=== PATIENT | female | born 1955 | race Caucasian/White ===

== ENCOUNTER 2016-12-20 11:37 | Outpatient (CLI) | payer OTHER | END 2016-12-20 11:38 | disposition home or self-care (01) | DX: Z79.899 Other long term (current) drug therapy (principal) ==

== ENCOUNTER 2017-01-13 12:59 | Outpatient (CLI) | payer OTHER | END 2017-01-13 13:00 | disposition home or self-care (01) | DX: M51.26 Other intervertebral disc displacement, lumbar region (principal); M47.896 Other spondylosis, lumbar region; M51.36 Other intervertebral disc degeneration, lumbar region; M47.897 Other spondylosis, lumbosacral region; M51.37 Other intervertebral disc degeneration, lumbosacral region; M43.14 Spondylolisthesis, thoracic region; M51.34 Other intervertebral disc degeneration, thoracic region ==

== ENCOUNTER 2017-01-13 13:00 | Outpatient (CLI) | payer OTHER | END 2017-01-13 13:01 | disposition home or self-care (01) | DX: M85.88 Other specified disorders of bone density and structure, other site (principal) ==

== ENCOUNTER 2018-04-10 12:09 | Outpatient (CLI) | payer MEDICARE, OTHER ==
--- NOTE | 2018-04-10 12:38 | XRAY Report ---
Procedure Date: 04/10/2018 Accession Number: [id number] / [id number] Procedure: XRS - Chest 2 View X-Ray CPT Code: 52948 FULL RESULT: EXAM: Chest 2 View X-Ray DATE: 04/10/2018 12:29 PM CLINICAL HISTORY: CHEST PAIN, UNSPECIFIED COMPARISON: None. TECHNIQUE: 2 views. FINDINGS: Lungs/Pleura: No focal opacities evident. No pneumothorax or pleural effusion. Normal volumes. Mediastinum: Heart and mediastinal contours are unremarkable. Other: None. IMPRESSION: Normal 2-view chest radiography. [facility]
== END 2018-04-10 12:10 | disposition home or self-care (01) ==
LOC: DI.S 12:09
PROVIDERS: ATTEND Internal Medicine
DX: S29.9XXA Unspecified injury of thorax, initial encounter (principal); R07.9 Chest pain, unspecified
CPT/HCPCS: 71046

== ENCOUNTER 2018-04-13 10:40 | Outpatient (CLI) | payer MEDICARE, OTHER ==
[2018-04-13 11:28] LABS: CREATININE 0.7 mg/dL (0.4-1.0)
== END 2018-04-13 10:41 | disposition home or self-care (01) ==
LOC: DI 10:40
PROVIDERS: ATTEND Internal Medicine
DX: S20.219A Contusion of unspecified front wall of thorax, initial encounter (principal); R07.1 Chest pain on breathing; Z98.82 Breast implant status; Z53.9 Procedure and treatment not carried out, unspecified reason
CPT/HCPCS: 36415; 82565

== ENCOUNTER 2018-04-14 12:42 | Outpatient (CLI) | payer MEDICARE, OTHER ==
[2018-04-14] MEDS ORDERED: IOPAMIDOL-300 100 ML VIAL IVP ONE (12:43)
[2018-04-14] MEDS ORDERED: IOPAMIDOL-300 100 ML VIAL ONE (13:01)
--- NOTE | 2018-04-14 14:51 | CT Report ---
Procedure Date: 04/14/2018 Accession Number: [id number] / [id number] Procedure: CT - Chest W/ CPT Code: FULL RESULT: EXAM: Chest W/ DATE: 04/14/2018 1:15 PM CLINICAL HISTORY: CHEST TRAUMA, PLEUROTIC PAIN, CHEST CONTUSION COMPARISON: None. TECHNIQUE: Routine helical CT imaging was performed through the chest. IV contrast: 80 mL Isovue 300. Reconstructions: Coronal and sagittal. In accordance with CT protocol optimization, one or more of the following dose reduction techniques were utilized for this exam: automated exposure control, adjustment of mA and/or KV based on patient size, or use of iterative reconstructive technique. FINDINGS: Lungs/Pleura: No nodules, bronchial thickening, consolidation, or edema. Pulmonary vasculature is normal. No pericardial or pleural effusion. No pneumothorax. Mediastinum: Normal. No adenopathy or masses. The heart and great vessels are normal. Bones: Unremarkable. Visualized Abdomen: Unremarkable. Other: Breast implants are intact. IMPRESSION: No evidence of trauma to the thorax. Intact bilateral breast implants. RAD[facility]
[2018-04-16] MEDS ORDERED: IOPAMIDOL-300 100 ML VIAL IVP ONE (14:31)
== END 2018-04-14 12:43 | disposition home or self-care (01) ==
LOC: DI 12:42
PROVIDERS: ATTEND Internal Medicine
DX: S29.9XXA Unspecified injury of thorax, initial encounter (principal); S20.219A Contusion of unspecified front wall of thorax, initial encounter; R07.1 Chest pain on breathing; Z98.82 Breast implant status
CPT/HCPCS: 71260; Q9967

== ENCOUNTER 2018-11-30 12:46 | Outpatient (CLI) | payer MEDICARE, OTHER ==
--- NOTE | 2018-12-02 08:18 | Mammography Report ---
Reason: ROUTINE MAMMO Procedure Date: 11/30/2018 Accession Number: [id number] / [id number] Procedure: ANIRUD[facility] - Screening Mammo Impl w/Fransico CPT Code: FULL RESULT: EXAM: Screening Mammo Implant w/Fransico DATE: 11/30/2018 1:26 PM CLINICAL HISTORY: Routine screening. No reported personal or family history of breast cancer. History of silicone implants in 2006. TECHNIQUE: Bilateral CC and MLO views were obtained. COMPARISON: None; unable to be obtained. FINDINGS: The breasts demonstrate heterogeneously dense fibroglandular parenchyma bilaterally. Bilateral breasts: There are subpectoral silicone implants with smooth margins bilaterally. There are no suspicious masses, calcifications or areas of distortion. IMPRESSION: Benign findings RECOMMENDATION: Routine annual screening unless otherwise clinically indicated. BI-RADS CATEGORY 2: Benign findings STANDARD QUALIFYING STATEMENTS: 1. This examination was not reviewed with the aid of Computer-Aided Detection (CAD). 2. A negative or benign imaging report should not preclude biopsy if clinically suspicious findings are present. 3. Dense breasts may obscure an underlying neoplasm. 4. This examination was reviewed with the aid of 3D breast imaging (tomosynthesis).
== END 2018-11-30 12:47 | disposition home or self-care (01) ==
LOC: DI 12:46
DX: Z12.31 Encounter for screening mammogram for malignant neoplasm of breast (principal); Z98.82 Breast implant status
CPT/HCPCS: 77063; 77067

== ENCOUNTER 2020-06-27 12:03 | Outpatient (CLI) | payer MEDICARE, OTHER | END 2020-06-27 12:04 | disposition home or self-care (01) | LOC: COV 12:03 | PROVIDERS: ATTEND Family Medicine | DX: R05 Cough (principal); M79.10 Myalgia, unspecified site; R53.83 Other fatigue; R68.83 Chills (without fever); J02.9 Acute pharyngitis, unspecified; R09.81 Nasal congestion; R11.2 Nausea with vomiting, unspecified; Z20.828 Contact with and (suspected) exposure to other viral communicable diseases ==

== ENCOUNTER 2020-10-16 13:02 | Outpatient (CLI) | payer MEDICARE, OTHER ==
--- NOTE | 2020-10-17 08:28 | Mammography Report ---
BILATERAL DIGITAL SCREENING MAMMOGRAM 3D/2D WITH AUGMENTATION: 10/16/2020 CLINICAL: Routine screening. Comparison is made to exam dated: 11/30/2018 mammogram - [facility]. The tissue of both breasts is heterogeneously dense. This may lower the sensitivity of mammography. Bilateral breast implants are stable. No significant masses, calcifications, or other findings are seen in either breast. There has been no significant interval change. IMPRESSION: NEGATIVE There is no mammographic evidence of malignancy. A 1 year screening mammogram is recommended. This exam was interpreted at Station ID: [id number]. NOTE: For mammograms, a report in lay terms will be sent to the patient. Approximately 15% of breast malignancies will not be visualized mammographically. In the management of a palpable breast mass, a negative mammogram must not discourage biopsy of a clinically suspicious lesion. Electronically Signed By: Brent Shannon M.D. ar/penrad:10/16/2020 14:56:55 ACR BI-RADS Category 1: Negative 3341F PARENCHYMAL PATTERN: (D) - The breast(s) demonstrate(s) heterogeneously dense fibroglandular pedro ortiz. BI-RADS CATEGORY: (1) - 1 RECOMMENDATION: (ANNUAL) - Recommend routine annual screening mammography. [id number] 1 year screening LATERALITY: (B)
== END 2020-10-16 13:03 | disposition home or self-care (01) ==
LOC: DI 13:02
PROVIDERS: ATTEND Physician Assistant
DX: Z12.31 Encounter for screening mammogram for malignant neoplasm of breast (principal); Z98.82 Breast implant status

== ENCOUNTER 2021-05-24 09:47 | Outpatient (CLI) | payer MEDICARE, OTHER ==
[2021-05-24 10:27] VITALS: BP 105/61
--- NOTE | 2021-05-24 10:27 | SLEEP CARE CONSULTATION ---
Information from patient questionnaire entered by Carmina Medeiros. I have reviewed and concur with the information entered by Carmina Medeiros. This document represents the service I personally performed and the decisions made by me, Dee Trinh ARNP. History of Present Illness Service Date and Time: 05/24/2021 0947 Reason for Visit: New patient Chief Complaint: reports: Unrefreshed sleep (sometimes), Snoring, Fatigue (when she saw her PCP but this has improved) Date of Onset: several months Usual bedtime: 11 pm Time it takes to fall asleep: 5 minutes Snores at night: Yes Observed to quit breathing while asleep: No Sleeps alone due to snoring: No Number of times waking at night: once generally Reasons for waking at night: reports: Snoring (couple times when napping on her back), Bathroom, Other (back hurts) Toss, Turn, or Twitch while sleeping: No (I don't know) Recalls having dreams: Yes Usually gets out of bed at: 6 am Feels refreshed in the morning: Yes (sometimes, depends) Morning headache: No Sleepy or fatigued during the day: No (sometimes) Ever fallen asleep while driving: No Takes day naps: Yes (sometimes; daily if allergies bad, not for last couple weeks) Dreams during day naps: No Prior sleep studies: No Additional HPI information: I had the pleasure of seeing ROSEMARY MCGREGOR today regarding the possibility of her having a sleep disorder. Her current complaint is snoring. Her has told her she is snoring "like a freight train" for the last year. Her is on a CPAP for sleep apnea. She has bad allergies and sometimes will sleep/nap in the afternoons. She states she sometimes feels rested in the morning and other times feels really tired. Her has not noticed any pauses in breathing or gasping in her sleep. She has some bad allergies to which she attributes her feeling of tiredness. She states when she saw her PCP she complained of really bad fatigue that had been ongoing but she thinks this has improved since she saw them. Her father did snore loudly and had emphysema but no diagnosis for sleep apnea. 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 Patient is and lives in [place]. Have you smoked in the past 12 months: No Quit date: 2000 Alcohol use: No Caffeine use: Yes Caffeine amount and frequency: 2-3 cups a day Family History Family history of sleep disordered breathing: Yes Family Hx Sleep Apnea: Father: Snoring, Sleep apnea - Untreated Allergies and Home Medications Drug allergies reviewed: Yes (NKDA) Home medication list reviewed: Yes Allergy and home medication list: Celexa Zyrtec Flonase Review of Systems Cardiovascular: denies: high blood pressure Respiratory: denies: shortness of breath Gastrointestinal: denies: heartburn Neurological: denies: headaches Psychiatric: reports: claustrophobia (a bit). denies: anxiety Ear/Nose/Throat: reports: nasal congestion, sinus problems, hoarseness, wisdom teeth removed. denies: tonsillectomy Musculoskeletal: reports: joint pain, back pain, muscle pain or cramping Immunologic: reports: allergies to food or environment (seasonal allergies and trees) Physical Exam Blood Pressure: 105/61 Cuff size: wrist Heart Rate: 61 O2 Saturation: 97 Height: 5 ft 3.5 in Weight: 125 lb Body Mass Index: 21.8 BMI Classification: Healthy weight Neck circumference: 12.75 (inches) Mouth and throat: narrow oropharynx Soft palate: long Hard palate: normal Uvula: normal Uvula visualization: 50% Mallampati Class II Tongue: enlarged in size with teeth patrick on lateral edges Tonsils: 1+ Neck: normal w/o lymphadenopathy or thyromegaly Heart: regular rate and rhythm Lungs: clear bilaterally Impression and Plan 1. Suspected Obstructive Sleep Apnea-Hypopnea Syndrome, as suggested by a history of loud and irregular snoring, unrefreshed sleep, and cognitive impairment. Narrow oropharynx and obesity are common predisposing factors for obstructive sleep apnea-hypopnea syndrome. I recommend proceeding to polysomnography to confirm the diagnosis and to assess severity. If the patient has significant sleep disordered breathing, a manual CPAP titration study will also be performed to find the optimal treatment pressure. I informed the patient of what the sleep studies involve and after some discussion, obtained agreement to proceed. The pathophysiology of obstructive sleep apnea-hypopnea syndrome was discussed with the patient and health risks of cardiovascular and cerebrovascular disease if not treated. Risks of drowsy driving discussed in detail and patient advised to avoid long distance driving and to ladle puller at the first sign of drowsiness. Patient agreed to plan. * Schedule polysomnography +- manual CPAP titration study and return in 1-2 weeks after the study to discuss result and initiate therapy. * Avoid long distance driving or driving when feeling sleepy. * Avoid alcohol, sedative and muscle relaxant around bedtime. * Attempt to lose weight. * Review instructions provided by trained office staff on how to prepare for the sleep study. * Return for follow-up after sleep study completed. Counseling Topics: Weight control Visit Type: In Office Time Spent with Patient (minutes): 30 Provider Statement: I spent 100% of the Face to Face Visit with the patient with greater than 50% spent counseling the patient and coordination of care.
== END 2021-05-24 09:48 | disposition home or self-care (01) ==
LOC: SC 09:47
PROVIDERS: ATTEND Nurse Practitioner Family
DX: R06.83 Snoring (principal); G47.8 Other sleep disorders; R41.89 Other symptoms and signs involving cognitive functions and awareness
CPT/HCPCS: 99203; G0463; 99212

== ENCOUNTER 2021-09-24 08:00 | Outpatient (CLI) | payer MEDICARE, OTHER | END 2021-09-24 23:59 | LOC: LAB 08:00 | PROVIDERS: ATTEND Emergency Medicine | DX: U07.1 COVID-19 (principal) | CPT/HCPCS: 87070; 87275; 87276; U0004 ==

== ENCOUNTER 2021-11-23 08:00 | Outpatient (CLI) | payer MEDICARE, OTHER ==
[2021-11-23 20:03] LABS: BILIRUBIN,URINE NEGATIVE (NEGATIVE); CLARITY,URINE CLEAR (CLEAR); GLUCOSE, URINE (UA) NEGATIVE (NEGATIVE); KETONES,URINE (UA) NEGATIVE (NEGATIVE); LEUKOCYTE ESTERASE, URINE NEGATIVE (NEGATIVE); NITRITE,URINE NEGATIVE (NEGATIVE); OCCULT BLOOD,URINE SMALL (NEGATIVE); PH,URINE 6.5 PH (5.0-7.5); PROTEIN,URINE NEGATIVE (NEGATIVE); UROBILINOGEN,URINE 0.2 (NORMAL) E.U./dL (NORMAL)
[2021-11-23 20:15] LABS: BACTERIA,URINE Rare /HPF (None Seen); SQUAMOUS EPITHELIAL CELL,UR FEW Squamous (<= Few); WBC,URINE 0-3 /HPF (0-5)
== END 2021-11-23 23:59 | disposition home or self-care (01) ==
LOC: LAB.S 08:00
PROVIDERS: ATTEND Registered Nurse
DX: R30.0 Dysuria (principal)
CPT/HCPCS: 81001; 87086

== ENCOUNTER 2021-12-30 08:00 | Outpatient (CLI) | payer MEDICARE, OTHER ==
[2021-12-30 18:27] LABS: BILIRUBIN,URINE NEGATIVE (NEGATIVE); GLUCOSE, URINE (UA) NEGATIVE (NEGATIVE); KETONES,URINE (UA) NEGATIVE (NEGATIVE); LEUKOCYTE ESTERASE, URINE NEGATIVE (NEGATIVE); NITRITE,URINE NEGATIVE (NEGATIVE); OCCULT BLOOD,URINE NEGATIVE (NEGATIVE); PH,URINE 6.5 PH (5.0-7.5); PROTEIN,URINE NEGATIVE (NEGATIVE); UROBILINOGEN,URINE 0.2 (NORMAL) E.U./dL (NORMAL)
[2021-12-30 18:28] LABS: CLARITY,URINE CLEAR (CLEAR)
[2021-12-30 18:43] LABS: BACTERIA,URINE None Seen /HPF (None Seen); RBC,URINE 0-5 /HPF (0-5); SQUAMOUS EPITHELIAL CELL,UR RARE Squamous (<= Few); WBC,URINE 0-3 /HPF (0-5)
[2021-12-30 21:39] LABS: BACTERIAL VAGINOSIS DNA NEGATIVE (NEGATIVE); CANDIDA GLABRATA DNA NEGATIVE (NEGATIVE); CANDIDA GROUP DNA NEGATIVE (NEGATIVE); CANDIDA KRUSEI DNA NEGATIVE (NEGATIVE); TRICHOMONAS VAGINALIS DNA NEGATIVE (NEGATIVE)
== END 2021-12-30 08:01 | disposition home or self-care (01) ==
LOC: LAB.S 08:00
PROVIDERS: ATTEND Physician Assistant Medical
DX: N76.0 Acute vaginitis (principal); R30.0 Dysuria
CPT/HCPCS: 81001; 81514; 87086